=== PATIENT | female | born 1995 | race American Indian/Alaskan Native ===

== ENCOUNTER 2020-12-30 09:22 | Emergency (ER) | payer SELFPAY ==
[2020-12-30 10:04] VITALS: BP 125/89
--- NOTE | 2020-12-30 10:29 | Emergency Department Report ---
<ALTHEA GAMEZ - Last Filed: 12/30/20 20:01> ED Back Pain/Injury HPI - General Chief Complaint: Urogenital-Female Stated Complaint: LOW BACK PAIN Time Seen by Provider: 12/30/20 10:21 Source: patient Limitations: No Limitations - History of Present Illness Initial Comments: 25-year-old female presents to the ER today with complaints of lower back pain. Patient states that symptoms started last night. Patient reports that a day or 2 prior to the onset of her back pain she started having some mild dysuria towards the end of urination. She is also starting to have some urinary urgency and frequency. She is concerned that her back pain could be related to UTI. She denies any injury or strenuous activity to her back. She reports associated dull achy intermittent pelvic pain. She denies any hematuria, urinary odor, vaginal discharge or any other associated symptoms. Her last menstrual cycle was December 28. She is currently on Implanon. MD Complaint: back pain -: days(s) (2) - Related Data Previous Rx's Medication Instructions Recorded Last Taken Type Ibuprofen [Motrin] 800 mg PO Q8HR PRN #30 tablet 12/30/20 Unknown Rx cephALEXin [Keflex] 500 mg PO Q6HR #40 capsule 12/30/20 Unknown Rx Allergies Allergy/AdvReac Type Severity Reaction Status Date / Time No Known Allergies Allergy Unverified 12/30/20 10:01 ED Review of Systems Comment: All other systems reviewed and negative Constitutional: denies: chills, fever Eyes: denies: eye pain, eye discharge, vision change ENT: denies: ear pain, throat pain, dental pain, hearing loss, epistaxis, congestion Respiratory: denies: cough, shortness of breath, SOB with exertion, SOB at rest, wheezing Cardiovascular: denies: chest pain, palpitations, dyspnea on exertion, edema, syncope, paroxysmal nocturnal dyspnea Endocrine: no symptoms reported Gastrointestinal: denies: abdominal pain, nausea, vomiting, diarrhea, constipation, hematemesis, melena, hematochezia Genitourinary: urgency, dysuria, frequency, other (pelvic pain ). denies: hematuria, discharge, abnormal menses, dyspareunia Musculoskeletal: back pain Skin: denies: rash, lesions, change in color, change in hair/nails, pruritus Neurological: denies: headache, weakness, numbness, paresthesias, confusion, abnormal gait, vertigo Psychiatric: denies: anxiety, depression Hematological/Lymphatic: as per HPI. denies: easy bleeding, easy bruising, swollen glands ED Past Medical Hx - Past Medical History Previous Medical History?: No - Surgical History Past Surgical History?: No - Medications Home Medications: Home Medications Medication Instructions Recorded Confirmed Last Taken Type Ibuprofen [Motrin] 800 mg PO Q8HR PRN #30 tablet 12/30/20 Unknown Rx cephALEXin [Keflex] 500 mg PO Q6HR #40 capsule 12/30/20 Unknown Rx ED Physical Exam - General Limitations: No Limitations General appearance: alert, in no apparent distress - Head Head exam: Present: atraumatic, normocephalic, normal inspection - Eye Eye exam: Present: normal appearance, PERRL, EOMI Pupils: Present: normal accommodation - ENT ENT exam: Present: normal exam, mucous membranes moist - Neck Neck exam: Present: normal inspection, full ROM - Respiratory Respiratory exam: Present: normal lung sounds bilaterally. Absent: respiratory distress - Cardiovascular Cardiovascular Exam: Present: regular rate, normal rhythm, normal heart sounds - GI/Abdominal GI/Abdominal exam: Present: soft. Absent: distended, tenderness, guarding, rebound - Back Exam Back exam: Present: normal inspection, full ROM, paraspinal tenderness (mild bilateral lumbar area). Absent: CVA tenderness (R), CVA tenderness (L) - Neurological Exam Neurological exam: Present: alert, oriented X3, CN II-XII intact, normal gait - Psychiatric Psychiatric exam: Present: normal affect, normal mood - Skin Skin exam: Present: intact ED Disposition Clinical Impression: Pyuria Low back pain Qualifiers: Chronicity: unspecified Back pain laterality: unspecified Sciatica presence: without sciatica Qualified Code(s): M54.5 - Low back pain Disposition: TO HOME OR SELFCARE Is pt being admited?: No Does the pt Need Aspirin: No Condition: Stable Instructions: Acute Back Pain, Adult, Urinary Tract Infection, Adult, [id number] Additional Instructions: Take the antibiotics as prescribed. The Motrin as prescribed. Recommend that you increase your intake of water. Follow-up with the primary care doctor listed on your discharge instructions. Return to the ER if your symptoms worsens in any way. Prescriptions: cephALEXin [Keflex] 500 mg PO Q6HR #40 capsule Ibuprofen [Motrin] 800 mg PO Q8HR PRN #30 tablet PRN Reason: Pain Referrals: SHERI RUSS MD [Staff Physician] - 3-5 Days Forms: Work/School Release Form(ED) Time of Disposition: 11:23 <ANGE TRONCOSO - Last Filed: 01/01/21 14:25> ED Review of Systems ROS: Stated complaint: LOW BACK PAIN Other details as noted in HPI ED Course Vital Signs 12/30/20 10:03 Temperature 99.1 F Pulse Rate 90 Respiratory 16 Rate Blood Pressure 125/89 [Right] O2 Sat by Pulse 98 Oximetry Critical care attestation.: If time is entered above; I have spent that time in minutes in the direct care of this critically ill patient, excluding procedure time. ED Disposition Is pt being admited?: No Does the pt Need Aspirin: No
[2020-12-30 10:55] LABS: RBC,Urine < 1.0 /HPF (0.0-6.0)
[2020-12-30 10:57] LABS: HCG Qualitative,Urine Negative (Negative)
[2020-12-30 11:04] LABS: Bilirubin,Urine NEG (Negative); Blood,Urine MOD (Negative); Color,Urine Amber (Yellow); Protein,Urine <15 mg/dL mg/dL (Negative); Urobilinogen,Urine < 2.0 mg/dL (<2.0)
== END 2020-12-30 12:45 | disposition home or self-care (01) ==
LOC: ED 09:22
DX: N39.0 Urinary tract infection, site not specified (principal); M54.5 Low back pain; Z79.899 Other long term (current) drug therapy
CPT/HCPCS: 81001; 81025; 87086; 99283